=== PATIENT | female | born 1985 | race Caucasian/White ===

== ENCOUNTER 2016-07-14 16:00 | Inpatient (IN) | payer OTHER ==
[~2016-07-14] VITALS: Ht 165.1 cm; Wt 113.6 kg
--- NOTE | 2016-07-14 18:07 | RADRPT ---
PROCEDURE: US OB. CLINICAL INDICATION: Induction. TECHNIQUE: Multiple sonographic images of the pelvis were obtained. Transabdominal imaging only w as performed. The images were reviewed on a PACS workstation. COMPARISON: No prior studies are available for comparison. FINDINGS: There is a single living intrauterine gestation in cephalic position. There is an anterior placenta. There is no evidence of previa. Adequate amniotic fluid is seen. The biparietal diameter is 9.21 cm consist with 16-vsfw-0-day gestation. The head circumference is 33.34 cm consist with 91-mbfk-9-day gestation. The abdominal circumference is 37.69 cm consistent with a 08-tjrc-7-day gestation. The femur length is 7.417 is consistent with a 86-futj-8-day gestation.. Estimated weight is 3926 plus or minus 589 g IMPRESSION: 1. Single living intrauterine gestation in cephalic position with a mean gestational age by ultraso und of 38 weeks 5 days plus or minus 19 days with estimated date of delivery of 07/23/2016. 2. Estimated weight 3926 plus or minus 589 g. RPTAT: [facility] Physician Manuel Date Time Electronically viewed and signed by Physician Manuel on 07/14/2016 18:06 /
[2016-07-14 18:30] VITALS: Ht 165.1 cm; Wt 113.6 kg
[2016-07-14] MEDS ORDERED: IBUPROFEN 600 MG TAB PO PRN (18:30)
[2016-07-14] MEDS ORDERED: PRENAT PO (18:30)
[2016-07-14] MEDS ORDERED: DINOPROSTONE 10 MG VAG SUPP VAG ONE (18:30)
[2016-07-14] MEDS ORDERED: OXYTOCIN 30 UNITS/LR 500 ML IV SCH ×2 (18:30)
[2016-07-14] MEDS ORDERED: MISOPROSTOL 200 MCG TAB PR PRN (18:30)
[2016-07-14] MEDS ORDERED: AMPICILLIN 2 GM/NS (PMX) 100 ML IV ONE (18:30)
[2016-07-14] MEDS ORDERED: LIDOCAINE 1% (MPF) 30 ML INJ INJ PRN (18:30)
[2016-07-14] MEDS ORDERED: BUTORPHANOL 2 MG INJ IV PRN (18:30)
[2016-07-14] MEDS ORDERED: CARBOPROST 250 MCG INJ IM PRN (18:30)
[2016-07-14] MEDS ORDERED: OXYTOCIN 30 UNITS/LR 500 ML IV PRN (18:30)
[2016-07-14] MEDS ORDERED: METHYLERGONOVINE 0.2 MG INJ IM PRN (18:30)
[2016-07-14 19:25] LABS: ADD SCAN DIFF NO
[2016-07-14 19:28] LABS: BASOPHILS % 0.3 % (0.0-2.0); EOSINOPHILS # 0.1 10^3/ul (0.0-0.5); EOSINOPHILS % 0.6 % (0.0-7.0); HEMATOCRIT 37.5 % (37.0-47.0); HEMOGLOBIN 12.4 g/dl (12.0-16.0); LYMPHOCYTES # 2.2 10^3/ul (0.8-2.9); LYMPHOCYTES % 19.7 % (15.0-51.0); MEAN CORPUSCULAR HEMOGLOBIN 29.2 pg (29.0-33.0); MEAN CORPUSCULAR HGB CONC 33.1 g/dl (32.0-37.0); MEAN CORPUSCULAR VOLUME 88.2 fl (82.0-101.0); MEAN PLATELET VOLUME 10.7 fl (7.4-10.4); MONOCYTE # 0.6 10^3/ul (0.3-0.9); MONOCYTES % 5.7 % (0.0-11.0); NEUTROPHIL # 8.2 10^3/ul (1.6-7.5); NEUTROPHILS % 73.2 % (39.0-77.0); PLATELET COUNT 233 10^3/UL (140-415); RED BLOOD COUNT 4.25 10^6/ul (4.20-5.40); RED CELL DISTRIBUTION WIDTH 14.2 % (11.5-14.5); WHITE BLOOD COUNT 11.1 10^3/ul (4.8-10.8)
[2016-07-14 19:39] LABS: INR 1.04; PROTIME 13.6 Sec (12.2-14.2); PT RATIO 1.1
[2016-07-14 19:40] LABS: PARTIAL THROMBOPLASTIN TIME 30.9 Sec (25.0-35.0)
[2016-07-14] MEDS: LACTATED RINGER'S 1,000 ML IV SCH (19:41)
[2016-07-14 20:19] VITALS: BP 119/69; PULSE 54; RESP 15
[2016-07-14] MEDS: AMPICILLIN 1 GM/NS (PMX) 50 ML IV SCH (22:33)
[2016-07-15] MEDS: LACTATED RINGER'S 1,000 ML IV SCH ×3 (02:25→09:49)
[2016-07-15] MEDS: AMPICILLIN 1 GM/NS (PMX) 50 ML IV SCH ×4 (02:31→14:16)
[2016-07-15] MEDS ORDERED: OXYTOCIN 30 UNITS/LR 500 ML IV SCH (06:30)
[2016-07-15] MEDS: LACTATED RINGER'S 1,000 ML IV PRN ×3 (06:40→16:21)
[2016-07-15] MEDS ORDERED: FENTAnyl 2MCG/ML-ROPIV 0.2% 100 ML ONE (08:06)
[2016-07-15] MEDS ORDERED: HYDROmorphONE 1 MG/ML SYG IV PRN ×2 (09:00)
[2016-07-15] MEDS ORDERED: ONDANSETRON 4 MG INJ IV PRN ×2 (09:00→18:30)
[2016-07-15] MEDS ORDERED: NALOXONE (0.4 MG/ML) INJ IV PRN (09:00)
[2016-07-15] MEDS ORDERED: FENTAnyl 2MCG/ML-ROPIV 0.2% 100 ML BAG EPI SCH (09:00)
[2016-07-15] MEDS ORDERED: CEFAZOLIN 2 GM/50 ML (PMX) 50 ML IVPB ONE (16:30)
[2016-07-15] MEDS ORDERED: PHENYLephrine (100 MCG/ML) 5ML SYG ONE (17:06)
[2016-07-15] MEDS ORDERED: morphine SULFATE/PF (10 MG/10 ML) INJ ONE (17:14)
[2016-07-15] MEDS ORDERED: EPHEDrine SULFATE 50 MG/5 ML SYG ONE (18:05)
[2016-07-15] MEDS ORDERED: METOCLOPRAMIDE 10 MG INJ IV PRN (18:30)
[2016-07-15] MEDS ORDERED: MEPERIDINE 25 MG INJ IV PRN (18:30)
[2016-07-15] MEDS ORDERED: FENTAnyl 50 MCG/ML VIAL IV PRN (18:30)
[2016-07-15] MEDS ORDERED: HYDROmorphONE (0.2 MG/ML) 10ML SYG IV PRN ×3 (18:30)
[2016-07-15] MEDS: KETOROLAC 30 MG INJ IV PRN (18:51)
--- NOTE | 2016-07-15 19:15 | HP ---
Date/Time of Note Date/Time of Note DATE: 07/15/16 TIME: 18:55 OB - History Hx of Present Free Text/Dictation This is a 30 years old female 1 para 0 EDC July 18, 2016 admitted to [facility] at 39 weeks and 4 day for induction of labor due to suspected large baby referred [facility], this patient has been under the care of the [facility] and her was not complicated with gestational diabetes however suspected large baby recommended by chief communications officer at [facility] induction of labor, she was admitted to L&D on 14 July late afternoon, admission pelvic exam cervix 1 cm dilated 50% effaced vertex at -3 -4 station she underwent a Cervidil induction which followed with Pitocin induction during the course of labor had one episode of variable deceleration for 3 minutes, spontaneous premature rupture of membrane at 0 300 today. Cervical dilatation progress to 4 cm then failed to progress over 4-5 hours patient declined further trial of labor requested operative delivery by section pros and cons regarding the and complication that may arise from this surgery discussed with the patient including bowel bladder injury infection hemorrhage and hematoma she decided to proceed with delivery. Chief Complaint: Induction of labor suspected large baby Estimated Due Date: July 18, 2016 : 1 Para: 0 Care: Good Care Ultrasounds: Normal mid trimester US Obstetrical Complications: None Past Family/Social History * Past Medical, Surgical, Family and Obstetric Histories reviewed from chart. Rubella: immune RPR/VDRL: Negative GBS Status: Negative HBsAG: Negative OB Admission Exam Vital Signs Vital Signs Vital Signs Date Time Temp Pulse Resp B/P Pulse Ox O2 Delivery O2 Flow Rate FiO2 07/14/16 20:19 98.0 54 15 119/69 Room Air Physical Exam HEENT: WNL Heart: Rhythm Normal Lungs: Clear, Equal Abdomen: WNL Extremities: Normal Reflexes: Normal Cervical Dilatation: 4cm Effacement: 75% Station: -2 Amniotic Fluid: Clear Heart Rate: 130's Decelerations: Variable Decelerations Varibility: Moderate Contractions on Admission: None Last 72 hours Lab Results CBC & BMP 07/14/16 19:15 OB Assessment/Plan Reason for admission: other (Cervical dilatation 4 cm with no further progress or several hours patient declined further trial of labor requested delivery) Plan: Section Induction Method: per Misoprostol Protocol KODI MCGINNIS MD Jul 15, 2016 19:06
[2016-07-15 20:50] VITALS: BP 135/73; PULSE 74; RESP 19
[2016-07-15] MEDS ORDERED: ACETAMINOPHEN/CODEINE #3 TAB PO PRN ×2 (21:30)
[2016-07-15] MEDS ORDERED: CEFAZOLIN 1 GM/50 ML (PMX) 50 ML IVPB SCH (21:30)
[2016-07-15] MEDS ORDERED: CARBOPROST 250 MCG INJ IM PRN (21:30)
[2016-07-15] MEDS ORDERED: LANOLIN 7 GM TUBE TOP PRN (21:30)
[2016-07-15] MEDS ORDERED: MISOPROSTOL 200 MCG TAB PR PRN (21:30)
[2016-07-15] MEDS ORDERED: OXYCODONE/ACETAMINOPHEN (5/325) TAB PO PRN ×2 (21:30)
[2016-07-15] MEDS ORDERED: OXYTOCIN 30 UNITS/LR 500 ML IV PRN (21:30)
[2016-07-15] MEDS ORDERED: METHYLERGONOVINE 0.2 MG INJ IM PRN (21:30)
[2016-07-15 21:50] VITALS: BP 129/56; PULSE 81; RESP 19
[2016-07-15] MEDS: OXYTOCIN 30 UNITS/LR 500 ML IV SCH (23:34)
[2016-07-16] MEDS ORDERED: IBUPROFEN 600 MG TAB PO SCH ×2
[2016-07-16 00:15] VITALS: BP 116/57; PULSE 79; RESP 18
[2016-07-16] MEDS: OXYTOCIN 30 UNITS/LR 500 ML IV SCH ×4 (01:15→13:15)
[2016-07-16 04:15] VITALS: BP 124/70; PULSE 74; RESP 19
[2016-07-16] MEDS: LACTATED RINGER'S 1,000 ML IV SCH ×2 (04:15→12:03)
--- NOTE | 2016-07-16 05:40 | OPR ---
DATE OF OPERATION: 07/15/2016 PREOPERATIVE DIAGNOSES: 1. Intrauterine at 39 weeks and 4 days, suspected large baby. 2. Failure to progress after cervical dilatation at 4 cm. 3. Declined further trial of labor. POSTOPERATIVE DIAGNOSES: 1. Intrauterine at 39 weeks and 4 days, suspected large baby. 2. Failure to progress after cervical dilatation at 4 cm. 3. Declined further trial of labor. OPERATION PERFORMED: Primary transverse low cervical section. SURGEON: Kodi Mcginnis MD [employer] REPRESENTATIVE: Dr. Lay Bolden ANESTHESIA: Spinal. ANESTHESIOLOGIST: Dr. Vargas FINDINGS: Live baby girl with Apgars of 8 and 9. DETAILS OF THE PROCEDURE: Under satisfactory spinal anesthesia, the patient was prepped, draped and placed in the supine position, tilted to the left. A Pfannenstiel incision was made, the incision carried through the subcutaneous tissue. Bleeders were brought under control with electrocautery. Fascia was incised through the length of the incision. Rectus muscle was divided in the midline. P eritoneum was exposed, entered through a transverse incision. Exploration of abdomen revealed a gra vid uterus at term, normal-appearing tubes and ovaries, evidence of labor. Bladder flap was develop ed. Transverse incision was made in the lower segment of the uterus. Amniotic sac ruptured. Scant amount of clear amniotic fluid was noted. A live baby girl was delivered from occiput posterior, w ith a large caput. Naso-oropharyngeal suction was performed. Baby was handed to the team for immediate attention. The patient received 20 units of Pitocin. Placenta was delivered manually intact. Uterine cavity was cleaned with a wet sponge and drainage established. Uterus was closed in 2 layers using Monocryl #1 in continuous fashion. Peritoneal cavity was irrigated with warm sali ne. Sponge, needle and instruments were reported to be correct. Abdominal peritoneum was closed wi th 2-0 chromic catgut continuously. Rectus muscle was approximated with several interrupted 2-0 chr omic catgut. Fascia was closed with #1 PDS in a continuous fashion. Subcutaneous tissue was approx imated with 2-0 chromic catgut. Skin was closed with monik. Estimated blood loss was 600 to 700 mL. Urine bag contained 200 mL of clear urine. Patient tolerated the procedure well, was transferr ed to the recovery room in good condition. Dictated By: KODI MCGINNIS MD HF/NTS Conf#: [id number] [facility]#: [id number]
[2016-07-16 07:30] VITALS: BP 100/54; PULSE 80; RESP 20
[2016-07-16 07:36] LABS: ADD SCAN DIFF NO
[2016-07-16 07:39] LABS: BASOPHILS % 0.2 % (0.0-2.0); EOSINOPHILS % 0.1 % (0.0-7.0); HEMATOCRIT 30.9 % (37.0-47.0); HEMOGLOBIN 10.2 g/dl (12.0-16.0); LYMPHOCYTES # 2.2 10^3/ul (0.8-2.9); LYMPHOCYTES % 13.9 % (15.0-51.0); MEAN CORPUSCULAR HEMOGLOBIN 29.3 pg (29.0-33.0); MEAN CORPUSCULAR VOLUME 88.8 fl (82.0-101.0); MEAN PLATELET VOLUME 10.6 fl (7.4-10.4); MONOCYTES % 6.3 % (0.0-11.0); NEUTROPHIL # 12.2 10^3/ul (1.6-7.5); NEUTROPHILS % 78.8 % (39.0-77.0); PLATELET COUNT 201 10^3/UL (140-415); RED BLOOD COUNT 3.48 10^6/ul (4.20-5.40); RED CELL DISTRIBUTION WIDTH 14.6 % (11.5-14.5); WHITE BLOOD COUNT 15.5 10^3/ul (4.8-10.8)
[2016-07-16] MEDS ORDERED: OXYCODONE/ACETAMINOPHEN (5/325) TAB PO PRN (09:00)
[2016-07-16] MEDS ORDERED: ACETAMINOPHEN/CODEINE #3 TAB PO PRN ×2 (09:00)
[2016-07-16] MEDS: SENNA/DOCUSATE NA (8.6MG/50MG) TAB PO SCH ×2 (09:00→21:00)
--- NOTE | 2016-07-16 09:13 | CONS ---
Date/Time of Note Date/Time of Note DATE: 07/16/16 TIME: 09:11 Consultation Date/Type/Reason Admit Date/Time Jul 14, 2016 at 16:06 Initial Consult Date 07/16/16 Type of Consultation: Anesthesiology Reason for Consultation Follow up visit 24 HR Interval Summary Free Text/Dictation Pt seen and examined at bedside POD#1 for c/s. Pt received spinal duramorph injection for post-op pain relief. She states she has minimal pain. No N/V/D/C/ Numbness. Will Follow in future. Constitutional: improved, no complaints Exam/Review of Systems Vital Signs Vitals Vital Signs Date Time Temp Pulse Resp B/P Pulse Ox O2 Delivery O2 Flow Rate FiO2 07/16/16 07:30 98.2 80 20 100/54 Room Air 07/16/16 01:25 96 21 Intake and Output 07/15/16 07/15/16 07/16/16 15:00 23:00 07:00 Intake Total 3231 ml 500 ml 925 ml Output Total 550 ml 600 ml 750 ml Balance 2681 ml -100 ml 175 ml Results Result Diagram: 07/16/16 0646 Results 24 hrs Laboratory Tests Test 07/16/16 06:46 White Blood Count 15.5 #H Red Blood Count 3.48 L Hemoglobin 10.2 L Hematocrit 30.9 L Mean Corpuscular Volume 88.8 Mean Corpuscular Hemoglobin 29.3 Mean Corpuscular Hemoglobin Concent 33.0 Red Cell Distribution Width 14.6 H Platelet Count 201 Mean Platelet Volume 10.6 H Neutrophils % 78.8 H Lymphocytes % 13.9 L Monocytes % 6.3 Eosinophils % 0.1 Basophils % 0.2 Nucleated Red Blood Cells % 0.0 Neutrophils # 12.2 H Lymphocytes # 2.2 Monocytes # 1.0 H Eosinophils # 0.0 Basophils # 0.0 Nucleated Red Blood Cells # 0.0 Medications Medications Current Medications Simethicone (Mylicon) 160 mg Q8H PRN PO DISTENSION/GAS/BLOATING; Start at 21:30 Senna/Docusate Sodium (Senokot-S) 1 tab BID PO ; Start 07/16/16 at 09:00 Diphtheria/ Tetanus/Acell Pertussis 0.5 ml 0.5 ml ONCE ONCE IM* ; Start 07/18/16 at 09:00; Stop 07/18/16 at 09:01 Oxytocin/Lactated Ringer's 500 ml @ 0 mls/hr ONCE PRN IV For Hemorrhage Management; Start 07/15/16 at 21:30 Methylergonovine Maleate (Methergine) 0.2 mg ONCE PRN IM VAGINAL BLEEDING; Start 07/15/16 at 21:30 Carboprost Tromethamine (Hemabate) 250 mcg ONCE PRN IM VAGINAL BLEEDING; Start 07/15/16 at 21:30 Misoprostol 1000 mcg 1,000 mcg ONCE PRN NC VAGINAL BLEEDING; Start 07/15/16 at 21:30 Oxytocin/Lactated Ringer's 500 ml @ 125 mls/hr Q4H IV Last administered on 23:34; Admin Dose 125 MLS/HR; Start 07/15/16 at 21:15 Acetaminophen/ Codeine Phosphate (Tylenol No.3) 1 tab Q4H PRN PO PAIN LEVEL 4-6 ; Start 07/16/16 at 09:00 Acetaminophen/ Codeine Phosphate (Tylenol No.3) 2 tab Q4H PRN PO PAIN LEVEL 7- 10; Start 07/16/16 at 09:00 Oxycodone/ Acetaminophen (Percocet (5/ 325)) 1 tab Q4H PRN PO PAIN LEVEL 4-6; Start 07/16/16 at 09:00 Oxycodone/ Acetaminophen (Percocet (5/ 325)) 2 tab Q4H PRN PO PAIN LEVEL 7-10; Start 07/16/16 at 09:00 Ibuprofen 600 mg 600 mg Q6 PO ; Start 07/16/16 at 12:00 Lactated Ringer's (Lr) 1,000 ml @ 125 mls/hr Q8H IV Last administered on 04:15; Admin Dose 125 MLS/HR; Start 07/16/16 at 04:30; Stop 07/16/16 at 17: 30 CINDY TORRES Jul 16, 2016 09:13
--- NOTE | 2016-07-16 10:01 | PN ---
Date/Time of Note Date/Time of Note DATE: 07/16/16 TIME: 10:00 OB Subjective Subjective Subjective Post day 1 Afebrile vital signs are stable abdomen soft bowel sound present but weak lochia normal incision dry extremity normal ambulation recommended Laboratory Tests Test 07/16/16 06:46 White Blood Count 15.510^3/ul Red Blood Count 3.4810^6/ul Hemoglobin 10.2g/dl Hematocrit 30.9% Mean Corpuscular Volume 88.8fl Mean Corpuscular Hemoglobin 29.3pg Mean Corpuscular Hemoglobin Concent 33.0g/dl Red Cell Distribution Width 14.6% Platelet Count 19826^3/UL Mean Platelet Volume 10.6fl Neutrophils % 78.8% Lymphocytes % 13.9% Monocytes % 6.3% Eosinophils % 0.1% Basophils % 0.2% Nucleated Red Blood Cells % 0.0/100WBC Neutrophils # 12.210^3/ul Lymphocytes # 2.210^3/ul Monocytes # 1.010^3/ul Eosinophils # 0.010^3/ul Basophils # 0.010^3/ul Nucleated Red Blood Cells # 0.010^3/ul Current Medications Medications (Trade) Dose Ordered Sig/David Route PRN Reason Start Time Stop Time Status Last Admin Dose Admin Lactated Ringer's 1,000 ml @ 125 mls/hr Q8H IV 07/14/16 18:25 07/15/16 21:21 DC 07/15/16 09:49 Ampicillin 100 ml @ 100 mls/hr ONCE ONCE IV 07/14/16 18:30 07/14/16 19:29 DC 07/14/16 19:40 Ampicillin (Ampicillin 1 Gm/ NS (Pmx)) 50 ml @ 100 mls/hr Q4H IV 07/14/16 22:30 07/15/16 21:21 DC 07/15/16 14:16 Dinoprostone (Cervidil Vaginal Supp) 10 mg ONCE ONCE VAG 07/14/16 18:30 07/14/16 18:36 DC 07/14/16 19:40 Butorphanol Tartrate (Stadol) 2 mg Q2H PRN IV PAIN 07/14/16 18:30 07/15/16 21:21 DC 07/15/16 03:33 Lidocaine 30 ml 30 ml ONCE PRN INJ EPISIOTOMY/TEARING 07/14/16 18:30 07/15/16 21:21 DC Oxytocin/Lactated Ringer's 500 ml @ 125 mls/hr ONCE -MAY REPEAT X1 IV 07/14/16 18:30 07/15/16 21:21 DC Oxytocin/Lactated Ringer's 500 ml @ 125 mls/hr ONCE IV 07/14/16 18:30 07/15/16 21:22 DC 07/15/16 18:50 Ibuprofen 600 mg 600 mg ONCE PRN PO Mild Pain (Pain Score 1-3) 07/14/16 18:30 07/15/16 21:22 DC Lactated Ringer's 1,000 ml @ 2,000 mls/hr Q30M PRN IV PRE-EPIDURAL BOLUS 07/14/16 18:28 07/15/16 21:22 DC 07/15/16 16:21 Oxytocin/Lactated Ringer's 500 ml @ 0 mls/hr ONCE PRN IV For Hemorrhage Management 07/14/16 18:30 07/15/16 21:22 DC 07/15/16 06:32 Methylergonovine Maleate (Methergine) 0.2 mg ONCE PRN IM VAGINAL BLEEDING 07/14/16 18:30 07/15/16 21:22 DC Carboprost Tromethamine (Hemabate) 250 mcg ONCE PRN IM VAGINAL BLEEDING 07/14/16 18:30 07/15/16 21:22 DC Misoprostol 1000 mcg 1,000 mcg ONCE PRN DC VAGINAL BLEEDING 07/14/16 18:30 07/15/16 21:22 DC Oxytocin/Lactated Ringer's 500 ml @ 0 mls/hr Q0M IV 07/15/16 06:30 07/15/16 21:21 DC Fentanyl/ Ropivacaine 100 ml @ ud STK-MED ONCE .ROUTE 07/15/16 08:06 07/15/16 08:07 DC Naloxone HCl (Narcan) 0.1 mg Q2M PRN IV FOR RESP RATE 8 OR LESS 07/15/16 09:00 07/16/16 08:59 DC Ketorolac Tromethamine (Toradol) 30 mg Q6H PRN IV PAIN 07/15/16 09:00 07/16/16 08:59 DC 07/15/16 18:51 Hydromorphone HCl (Dilaudid) 0.2 mg Q3H PRN IV PAIN LEVEL 1-5 07/15/16 09:00 07/16/16 08:59 DC Hydromorphone HCl (Dilaudid) 0.4 mg Q3H PRN IV PAIN LEVEL 6-10 07/15/16 09:00 07/16/16 08:59 DC Ondansetron HCl (Zofran Inj) 4 mg Q6H PRN IV NAUSEA AND/OR VOMITING 07/15/16 09:00 07/16/16 08:59 DC Fentanyl/ Ropivacaine 100 ml 100 ml EPIDURAL INFUSION EPI 07/15/16 09:00 07/15/16 21:21 DC Cefazolin Sodium/ Dextrose (Ancef 2 Gm/50 ml (Pmx)) 50 ml @ 100 mls/hr ONCE ONCE IVPB 07/15/16 16:30 07/15/16 16:59 DC Phenylephrine HCl (Davian-Synephrine Inj Syg) 500 mcg STK-MED ONCE .ROUTE 07/15/16 17:06 07/15/16 17:07 DC Morphine Sulfate (Duramorph) 10 mg STK-MED ONCE .ROUTE 07/15/16 17:14 07/15/16 17:15 DC Ephedrine Sulfate 50 mg STK-MED ONCE .ROUTE 07/15/16 18:05 07/15/16 18:06 DC Hydromorphone HCl (Dilaudid (Rec)) 0.2 mg PACU ORDER PRN IV MILD PAIN LEVEL 1-3 07/15/16 18:30 07/15/16 21:21 DC Hydromorphone HCl (Dilaudid (Rec)) 0.4 mg PACU ORDER PRN IV MODERATE PAIN LEVEL 4-6 07/15/16 18:30 07/15/16 21:21 DC Hydromorphone HCl (Dilaudid (Rec)) 0.6 mg PACU ORDER PRN IV SEVERE PAIN LEVEL 7-10 07/15/16 18:30 07/15/16 21:21 DC Fentanyl (Sublimaze) 25 mcg PACU ORDER PRN IV MILD PAIN LEVEL 1-3 07/15/16 18:30 07/15/16 21:21 DC Ondansetron HCl (Zofran Inj) 4 mg PACU ORDER PRN IV NAUSEA AND/OR VOMITING 07/15/16 18:30 07/15/16 21:21 DC Metoclopramide HCl (Reglan) 10 mg PACU ORDER PRN IV NAUSEA AND/OR VOMITING 07/15/16 18:30 07/15/16 21:21 DC Meperidine HCl (Demerol) 25 mg PACU ORDER PRN IV POST-OP RIGORS 07/15/16 18:30 07/15/16 21:21 DC Acetaminophen/ Codeine Phosphate (Tylenol No.3) 1 tab Q4H PRN PO PAIN LEVEL 4-6 07/15/16 21:30 07/15/16 21:39 DC Acetaminophen/ Codeine Phosphate (Tylenol No.3) 2 tab Q4H PRN PO PAIN LEVEL 7-10 07/15/16 21:30 07/15/16 21:39 DC Oxycodone/ Acetaminophen (Percocet (5/ 325)) 1 tab Q4H PRN PO PAIN LEVEL 4-6 07/15/16 21:30 07/15/16 21:39 DC Oxycodone/ Acetaminophen (Percocet (5/ 325)) 2 tab Q4H PRN PO PAIN LEVEL 7-10 07/15/16 21:30 07/15/16 21:39 DC Ibuprofen (Motrin) 600 mg Q6 PO 07/16/16 00:00 UNV Simethicone (Mylicon) 160 mg Q8H PRN PO DISTENSION/GAS/BLOATING 07/15/16 21:30 Senna/Docusate Sodium (Senokot-S) 1 tab BID PO 07/16/16 09:00 Lanolin (Nka-X-Vmkbuy) 1 applic BEDSIDE MEDICATION PRN TOP BEDSIDE FOR EMILY TO NIPPLES 07/15/16 21:30 07/16/16 03:38 Diphtheria/ Tetanus/Acell Pertussis 0.5 ml 0.5 ml ONCE ONCE IM* 07/18/16 09:00 07/18/16 09:01 Oxytocin/Lactated Ringer's 500 ml @ 0 mls/hr ONCE PRN IV For Hemorrhage Management 07/15/16 21:30 Methylergonovine Maleate (Methergine) 0.2 mg ONCE PRN IM VAGINAL BLEEDING 07/15/16 21:30 Carboprost Tromethamine (Hemabate) 250 mcg ONCE PRN IM VAGINAL BLEEDING 07/15/16 21:30 Misoprostol 1000 mcg 1,000 mcg ONCE PRN DC VAGINAL BLEEDING 07/15/16 21:30 Cefazolin Sodium 50 ml @ 100 mls/hr ONCE IVPB 07/15/16 21:30 07/15/16 21:59 DC 07/16/16 00:57 Oxytocin/Lactated Ringer's 500 ml @ 125 mls/hr Q4H IV 07/15/16 21:15 07/15/16 23:34 Ibuprofen (Motrin) 600 mg Q6 PO 07/16/16 00:00 07/16/16 00:00 DC Acetaminophen/ Codeine Phosphate (Tylenol No.3) 1 tab Q4H PRN PO PAIN LEVEL 4-6 07/16/16 09:00 Acetaminophen/ Codeine Phosphate (Tylenol No.3) 2 tab Q4H PRN PO PAIN LEVEL 7-10 07/16/16 09:00 Oxycodone/ Acetaminophen (Percocet (5/ 325)) 1 tab Q4H PRN PO PAIN LEVEL 4-6 07/16/16 09:00 Oxycodone/ Acetaminophen (Percocet (5/ 325)) 2 tab Q4H PRN PO PAIN LEVEL 7-10 07/16/16 09:00 Ibuprofen 600 mg 600 mg Q6 PO 07/16/16 12:00 Lactated Ringer's (Lr) 1,000 ml @ 125 mls/hr Q8H IV 07/16/16 04:30 07/16/16 17:30 07/16/16 04:15 KODI MCGINNIS MD Jul 16, 2016 10:01
[2016-07-16] MEDS: KETOROLAC 30 MG INJ IV PRN ×2 (10:24→16:15)
[2016-07-16 11:30] VITALS: BP 98/54; PULSE 75; RESP 20
[2016-07-16] MEDS: IBUPROFEN 600 MG TAB PO SCH ×2 (12:00→23:35)
[2016-07-16 19:30] VITALS: BP 123/72; PULSE 75; RESP 18
[2016-07-16] MEDS ORDERED: KETOROLAC 30 MG INJ IM PRN (20:00)
[2016-07-16] MEDS: ONDANSETRON 4 MG INJ IM PRN (20:20)
[2016-07-16] MEDS: KETOROLAC 30 MG INJ IM PRN (22:54)
[2016-07-17 04:00] VITALS: BP 112/60; PULSE 65; RESP 18
[2016-07-17] MEDS: IBUPROFEN 600 MG TAB PO SCH ×4 (06:00→23:25)
[2016-07-17 08:10] VITALS: BP 121/78; PULSE 68; RESP 16
[2016-07-17] MEDS: KETOROLAC 30 MG INJ IM PRN (08:11)
[2016-07-17] MEDS: ONDANSETRON 4 MG INJ IM PRN (08:11)
[2016-07-17] MEDS: SENNA/DOCUSATE NA (8.6MG/50MG) TAB PO SCH ×2 (09:00→21:04)
[2016-07-17] MEDS: OXYCODONE/ACETAMINOPHEN (5/325) TAB PO PRN (14:26)
--- NOTE | 2016-07-17 15:49 | PN ---
Date/Time of Note Date/Time of Note DATE: 07/17/16 TIME: 15:48 OB Subjective Subjective Subjective Post day 1 Afebrile vital signs stable, sitting in bed in no apparent distress breast- feeding generally feels good complaining of some burning sensation on incision site urinating comfortably no bowel movement bowel sounds present Current Medications Medications (Trade) Dose Ordered Sig/David Route PRN Reason Start Time Stop Time Status Last Admin Dose Admin Lactated Ringer's 1,000 ml @ 125 mls/hr Q8H IV 07/14/16 18:25 07/15/16 21:21 DC 07/15/16 09:49 Ampicillin 100 ml @ 100 mls/hr ONCE ONCE IV 07/14/16 18:30 07/14/16 19:29 DC 07/14/16 19:40 Ampicillin (Ampicillin 1 Gm/ NS (Pmx)) 50 ml @ 100 mls/hr Q4H IV 07/14/16 22:30 07/15/16 21:21 DC 07/15/16 14:16 Dinoprostone (Cervidil Vaginal Supp) 10 mg ONCE ONCE VAG 07/14/16 18:30 07/14/16 18:36 DC 07/14/16 19:40 Butorphanol Tartrate (Stadol) 2 mg Q2H PRN IV PAIN 07/14/16 18:30 07/15/16 21:21 DC 07/15/16 03:33 Lidocaine 30 ml 30 ml ONCE PRN INJ EPISIOTOMY/TEARING 07/14/16 18:30 07/15/16 21:21 DC Oxytocin/Lactated Ringer's 500 ml @ 125 mls/hr ONCE -MAY REPEAT X1 IV 07/14/16 18:30 07/15/16 21:21 DC Oxytocin/Lactated Ringer's 500 ml @ 125 mls/hr ONCE IV 07/14/16 18:30 07/15/16 21:22 DC 07/15/16 18:50 Ibuprofen 600 mg 600 mg ONCE PRN PO Mild Pain (Pain Score 1-3) 07/14/16 18:30 07/15/16 21:22 DC Lactated Ringer's 1,000 ml @ 2,000 mls/hr Q30M PRN IV PRE-EPIDURAL BOLUS 07/14/16 18:28 07/15/16 21:22 DC 07/15/16 16:21 Oxytocin/Lactated Ringer's 500 ml @ 0 mls/hr ONCE PRN IV For Hemorrhage Management 07/14/16 18:30 07/15/16 21:22 DC 07/15/16 06:32 Methylergonovine Maleate (Methergine) 0.2 mg ONCE PRN IM VAGINAL BLEEDING 07/14/16 18:30 07/15/16 21:22 DC Carboprost Tromethamine (Hemabate) 250 mcg ONCE PRN IM VAGINAL BLEEDING 07/14/16 18:30 07/15/16 21:22 DC Misoprostol 1000 mcg 1,000 mcg ONCE PRN NM VAGINAL BLEEDING 07/14/16 18:30 07/15/16 21:22 DC Oxytocin/Lactated Ringer's 500 ml @ 0 mls/hr Q0M IV 07/15/16 06:30 07/15/16 21:21 DC Fentanyl/ Ropivacaine 100 ml @ ud STK-MED ONCE .ROUTE 07/15/16 08:06 07/15/16 08:07 DC Naloxone HCl (Narcan) 0.1 mg Q2M PRN IV FOR RESP RATE 8 OR LESS 07/15/16 09:00 07/16/16 08:59 DC Ketorolac Tromethamine (Toradol) 30 mg Q6H PRN IV PAIN 07/15/16 09:00 07/16/16 17:30 DC 07/16/16 16:15 Hydromorphone HCl (Dilaudid) 0.2 mg Q3H PRN IV PAIN LEVEL 1-5 07/15/16 09:00 07/16/16 08:59 DC Hydromorphone HCl (Dilaudid) 0.4 mg Q3H PRN IV PAIN LEVEL 6-10 07/15/16 09:00 07/16/16 08:59 DC Ondansetron HCl (Zofran Inj) 4 mg Q6H PRN IV NAUSEA AND/OR VOMITING 07/15/16 09:00 07/16/16 08:59 DC Fentanyl/ Ropivacaine 100 ml 100 ml EPIDURAL INFUSION EPI 07/15/16 09:00 07/15/16 21:21 DC Cefazolin Sodium/ Dextrose (Ancef 2 Gm/50 ml (Pmx)) 50 ml @ 100 mls/hr ONCE ONCE IVPB 4/28/17 16:30 07/15/16 16:59 DC Phenylephrine HCl (Davian-Synephrine Inj Syg) 500 mcg STK-MED ONCE .ROUTE 07/15/16 17:06 07/15/16 17:07 DC Morphine Sulfate (Duramorph) 10 mg STK-MED ONCE .ROUTE 07/15/16 17:14 07/15/16 17:15 DC Ephedrine Sulfate 50 mg STK-MED ONCE .ROUTE 07/15/16 18:05 07/15/16 18:06 DC Hydromorphone HCl (Dilaudid (Rec)) 0.2 mg PACU ORDER PRN IV MILD PAIN LEVEL 1-3 07/15/16 18:30 07/15/16 21:21 DC Hydromorphone HCl (Dilaudid (Rec)) 0.4 mg PACU ORDER PRN IV MODERATE PAIN LEVEL 4-6 07/15/16 18:30 07/15/16 21:21 DC Hydromorphone HCl (Dilaudid (Rec)) 0.6 mg PACU ORDER PRN IV SEVERE PAIN LEVEL 7-10 07/15/16 18:30 07/15/16 21:21 DC Fentanyl (Sublimaze) 25 mcg PACU ORDER PRN IV MILD PAIN LEVEL 1-3 07/15/16 18:30 07/15/16 21:21 DC Ondansetron HCl (Zofran Inj) 4 mg PACU ORDER PRN IV NAUSEA AND/OR VOMITING 07/15/16 18:30 07/15/16 21:21 DC Metoclopramide HCl (Reglan) 10 mg PACU ORDER PRN IV NAUSEA AND/OR VOMITING 07/15/16 18:30 07/15/16 21:21 DC Meperidine HCl (Demerol) 25 mg PACU ORDER PRN IV POST-OP RIGORS 07/15/16 18:30 07/15/16 21:21 DC Acetaminophen/ Codeine Phosphate (Tylenol No.3) 1 tab Q4H PRN PO PAIN LEVEL 4-6 07/15/16 21:30 07/15/16 21:39 DC Acetaminophen/ Codeine Phosphate (Tylenol No.3) 2 tab Q4H PRN PO PAIN LEVEL 7-10 07/15/16 21:30 07/15/16 21:39 DC Oxycodone/ Acetaminophen (Percocet (5/ 325)) 1 tab Q4H PRN PO PAIN LEVEL 4-6 07/15/16 21:30 07/15/16 21:39 DC Oxycodone/ Acetaminophen (Percocet (5/ 325)) 2 tab Q4H PRN PO PAIN LEVEL 7-10 07/15/16 21:30 07/15/16 21:39 DC Ibuprofen (Motrin) 600 mg Q6 PO 07/16/16 00:00 UNV Simethicone (Mylicon) 160 mg Q8H PRN PO DISTENSION/GAS/BLOATING 07/15/16 21:30 07/17/16 02:26 Senna/Docusate Sodium (Senokot-S) 1 tab BID PO 07/16/16 09:00 Lanolin (Qnl-L-Fgeaik) 1 applic BEDSIDE MEDICATION PRN TOP BEDSIDE FOR EMILY TO NIPPLES 07/15/16 21:30 07/16/16 03:38 Diphtheria/ Tetanus/Acell Pertussis 0.5 ml 0.5 ml ONCE ONCE IM* 07/18/16 09:00 07/18/16 09:01 Oxytocin/Lactated Ringer's 500 ml @ 0 mls/hr ONCE PRN IV For Hemorrhage Management 07/15/16 21:30 Methylergonovine Maleate (Methergine) 0.2 mg ONCE PRN IM VAGINAL BLEEDING 07/15/16 21:30 Carboprost Tromethamine (Hemabate) 250 mcg ONCE PRN IM VAGINAL BLEEDING 07/15/16 21:30 Misoprostol 1000 mcg 1,000 mcg ONCE PRN NM VAGINAL BLEEDING 07/15/16 21:30 Cefazolin Sodium 50 ml @ 100 mls/hr ONCE IVPB 07/15/16 21:30 07/15/16 21:59 DC 07/16/16 00:57 Oxytocin/Lactated Ringer's 500 ml @ 125 mls/hr Q4H IV 07/15/16 21:15 07/16/16 23:36 DC 07/15/16 23:34 Ibuprofen (Motrin) 600 mg Q6 PO 07/16/16 00:00 07/16/16 00:00 DC Acetaminophen/ Codeine Phosphate (Tylenol No.3) 1 tab Q4H PRN PO PAIN LEVEL 4-6 07/16/16 09:00 Acetaminophen/ Codeine Phosphate (Tylenol No.3) 2 tab Q4H PRN PO PAIN LEVEL 7-10 07/16/16 09:00 Oxycodone/ Acetaminophen (Percocet (5/ 325)) 1 tab Q4H PRN PO PAIN LEVEL 4-6 07/16/16 09:00 07/17/16 14:26 Oxycodone/ Acetaminophen (Percocet (5/ 325)) 2 tab Q4H PRN PO PAIN LEVEL 7-10 07/16/16 09:00 Ibuprofen 600 mg 600 mg Q6 PO 07/16/16 12:00 Lactated Ringer's (Lr) 1,000 ml @ 125 mls/hr Q8H IV 07/16/16 04:30 07/16/16 17:30 DC 07/16/16 12:03 Ketorolac Tromethamine (Toradol) 30 mg Q6H PRN IM PAIN 07/16/16 20:00 07/19/16 19:59 UNV Ondansetron HCl (Zofran Inj) 4 mg Q6H PRN IM NAUSEA AND/OR VOMITING 07/16/16 20:00 07/17/16 08:11 Ketorolac Tromethamine (Toradol) 30 mg Q6H PRN IM PAIN 07/16/16 20:30 07/19/16 20:29 07/17/16 08:11 KODI MCGINNIS MD Jul 17, 2016 15:49
[2016-07-17 16:00] VITALS: BP 124/77; PULSE 68; RESP 20
[2016-07-17 20:00] VITALS: BP 107/75; PULSE 59; RESP 19
[2016-07-18 04:20] VITALS: BP 118/74; PULSE 55; RESP 21
[2016-07-18] MEDS: IBUPROFEN 600 MG TAB PO SCH ×2 (05:34→11:38)
[2016-07-18 08:43] VITALS: BP 114/64; PULSE 69; RESP 18
[2016-07-18] MEDS: SENNA/DOCUSATE NA (8.6MG/50MG) TAB PO SCH (08:45)
[2016-07-18] MEDS ORDERED: DIPHTH/TET/ACEL PERTUSS (ADULT) 0.5 ML VIAL IM* ONE (09:00)
[2016-07-18] MEDS: OXYCODONE/ACETAMINOPHEN (5/325) TAB PO PRN (10:03)
--- NOTE | 2016-07-18 10:08 | DS ---
Date/Time of Note Date/Time of Note DATE: 07/18/16 TIME: 10:06 Obstetrical Discharge Record Final Diagnosis Final Diagnosis: Term delivered Section Section: Primary Complications Other (Failure to progress ) Augmentation: Yes Rupture of Membranes: No Condition on Discharge Physical Assessment Last Vitals: Vital signs stable Voiding: Yes Bowel Movement: Yes Breast: Soft, non-tender, Filling Fundus: Firm Abdomen and Incision: Healing well dry Calf Tenderness: No Patient Condition: Good KODI MCGINNIS MD July 18, 2016 10:08
--- NOTE | 2016-07-18 10:09 | PD.PPDC ---
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
== END 2016-07-18 13:10 | disposition home or self-care (01) | DRG 765 ==
LOC: L-D 16:06 → PP1 07-15 20:50
PROVIDERS: ADMIT Obstetrics & Gynecology; ATTEND Obstetrics & Gynecology
PROC: 3E0P7GC Introduction of Other Therapeutic Substance into Female Reproductive, Via Natural or Artificial Opening (ICD-10-PCS; 2016-07-14)
PROC: 10D00Z1 Extraction of Products of Conception, Low, Open Approach (ICD-10-PCS; principal; 2016-07-15 17:30)
DX: O36.63X0 Maternal care for excessive fetal growth, third trimester, not applicable or unspecified (principal); Z68.41 Body mass index [BMI] 40.0-44.9, adult; O61.0 Failed medical induction of labor; O76 Abnormality in fetal heart rate and rhythm complicating labor and delivery; Z3A.39 39 weeks gestation of pregnancy; Z37.0 Single live birth; O99.214 Obesity complicating childbirth; E66.01 Morbid (severe) obesity due to excess calories
CPT/HCPCS: 62319; 76815; 85025; 85610; 85730; 86592; 86900; 86901; 87340; 90715; 94760; 99464; J0290; J0690; J1885; J2274; J2370; J2405; J2590; J3010; J7120